=== PATIENT | female | born 1995 | race African-American/Black ===

== ENCOUNTER 2021-07-04 19:30 | Emergency (ER) | payer OTHER, SELFPAY ==
--- NOTE | ~2021-07-04 | XR_ITS ---
EXAMINATION: XR chest 2V Exam Date/Time: 07/04/2021 20:14 CDT CLINICAL HISTORY: hemoptysis, body aches,cough,n,blood in brown sputumx 4 days Comparison: None available. RESULT: Lines, tubes, and devices: None. Lungs and pleura: Clear. Cardiomediastinal silhouette: Normal cardiomediastinal silhouette. Other: No acute osseous or upper abdominal finding. IMPRESSION: No acute cardiopulmonary process Reviewed, dictated and finalized at location K.
[2021-07-04 19:58] VITALS: BP 136/95; PULSE 102; RESP 22; TEMP 37.7; O2SAT 99
--- NOTE | 2021-07-04 21:02 | ED.URI ---
HPI - URI/Sore Throat General Chief Complaint: Upper Respiratory Infection <DIONICIO Angulo Last Filed: 07/04/21 22:09> Stated Complaint: coughing up blood <DIONICIO Angulo Last Filed: 07/04/21 22:09> Time Seen by Provider: 07/04/21 20:41 <DIONICIO Angulo Last Filed: 07/04/21 22:09> Source: patient <DIONICIO Angulo Last Filed: 07/04/21 22:09> Mode of arrival: ambulatory <DIONICIO Angulo Last Filed: 07/04/21 22:09> Limitations: no limitations <DIONICIO Angulo Last Filed: 07/04/21 22:09> History of Present Illness HPI Narrative: This is a 26-year-old female that presents to the emergency department for cold symptoms present over the last couple of days. Reports fever, chills, cough, congestion, and myalgias. Reports she coughed up some brown sputum that looked like it had a blood clot present. She is COVID vaccinated. Denies chest pain or shortness of breath. <DIONICIO Angulo Last Filed: 07/04/21 22:09> Related Data Home Medications: Home Medications Medication Instructions Recorded Confirmed sertraline mg 07/04/21 <DIONICIO Angulo Last Filed: 07/04/21 22:09> Allergies/Adverse Reactions: Allergies Allergy/AdvReac Type Severity Reaction Status Date / Time codeine Allergy Rash Verified 07/04/21 21:13 <DIONICIO Angulo Last Filed: 07/04/21 22:09> Review of Systems Review of Systems: CONSTITUTIONAL: Reports fever ENT: Reports rhinorrhea, congestion, sore throat CARDIOVASCULAR: Denies chest pain, or edema. RESPIRATORY: Reports cough. Denies dyspnea <DIONICIO Angulo Last Filed: 07/04/21 22:09> All systems reviewed & are unremarkable except as noted in HPI and below <DIONICIO Angulo Last Filed: 07/04/21 22:09> [facility] Past Medical History Medical History: Medical History (Updated 07/04/21 @ 22:03 by Padma Barr PA-C) History of depression <Padma Barr PA-C - Last Filed: 07/04/21 22:09> Social History Social History: Social History (Updated 07/04/21 @ 21:03 by Padma Barr PA-C) Smoking status: Never smoker <Padma Barr PA-C - Last Filed: 07/04/21 22:09> Exam Narrative: GENERAL: Well-appearing, well-nourished, and in no acute distress. HEAD: Normocephalic, atraumatic. EYES: EOMI. ENT: Nares with rhinorrhea. Mucous membranes moist. Oropharynx without tonsillar hypertrophy exudate or other lesions. Bilateral TMs pearly tellez non-bulging NECK: Supple. No adenopathy or masses. CHEST: Clear to auscultation. No respiratory distress. No wheezes rales or rhonchi HEART: Regular rate and rhythm. No murmur heard. Normal peripheral pulses. EXTREMITIES: Normal range of motion. No edema. SKIN: Warm, dry, no rash. NEURO: No focal deficits. Alert and oriented x3. PSYCH: Normal mood and affect <Padma Barr PA-C - Last Filed: 07/04/21 22:09> Course NURSE RESEARCH/PA Physician Supervision For this patient encounter, I reviewed the NURSE RESEARCH or PA documentation, treatment plan, and medical decision making <Lev Parker MD - Last Filed: 07/05/21 00:22> Vital Signs Vital signs: Vital Signs Temperature 99.8 F H 07/04/21 19:58 Pulse Rate 102 H 07/04/21 19:58 Respiratory Rate 22 H 07/04/21 19:58 Blood Pressure 136/95 H 07/04/21 19:58 Pulse Oximetry 99 07/04/21 19:58 Temperature 99.8 F H 07/04/21 19:58 Pulse Rate 95 07/04/21 21:14 Respiratory Rate 18 07/04/21 21:14 Blood Pressure 112/60 07/04/21 22:23 Pulse Oximetry 98 07/04/21 21:14 <Padma Barr PA-C - Last Filed: 07/04/21 22:09> Vital Signs Temperature 99.8 F H 07/04/21 19:58 Pulse Rate 102 H 07/04/21 19:58 Respiratory Rate 22 H 07/04/21 19:58 Blood Pressure 136/95 H 07/04/21 19:58 Pulse Oximetry 99 07/04/21 19:58 Temperature 99.8 F H 07/04/21 19:58 Pulse Rate 95 07/04/21 21:14 Respiratory Rate 18 07/04/21 21:14 Bl
[2021-07-04 21:14] VITALS: BP 130/85; PULSE 95; RESP 18; O2SAT 98
[2021-07-04] MEDS: ACETAMINOPHEN 500 MG TABLET 1000 MG PO (21:14)
[2021-07-04 21:57] LABS: Influenza A QL RT-PCR Negative (Negative); Influenza B QL RT-PCR Negative (Negative); SARS-CoV-2 RNA PCR Positive
[2021-07-04 22:23] VITALS: BP 112/60
== END 2021-07-04 22:24 | disposition home or self-care (01) ==
PROVIDERS: Physician Assistant; Emergency Provider Emergency Medicine
DX: U07.1 COVID-19 (principal); F32.A Depression, unspecified
CPT/HCPCS: 71046; 87502; 99283; A9270; C9803; U0003; U0005